=== PATIENT | female | born 1980 | race Caucasian/White ===

== ENCOUNTER 2020-09-28 22:02 | Emergency (ER) | payer OTHER ==
[2020-09-28] MEDS ORDERED: MAG HYDROX/AL HYDROX/SIMETH SUSP 30 ML UDCUP PO ONE (22:27)
[2020-09-28] MEDS ORDERED: LIDOCAINE 2% VISCOUS SOLN 15 ML UDCUP PO ONE (22:27)
--- NOTE | 2020-09-28 22:29 | ER Document Report ---
ED Medical Screen (RME) - General Chief Complaint: Chest Pain Stated Complaint: CHEST PAIN Time Seen by Provider: 09/28/20 22:20 - HPI Notes: 09/28/20 22:27 40-year-old female to the emergency department with complaints of anterior chest pain that radiates through to her back that began about an hour ago. She has also had sensation of shortness of breath and sweating with it. She has not had any nausea or vomiting. She states this started after dinner. She states that he had a double cheeseburger for dinner. She tried an antacid at home but that did not improve her pain. She states that the chest pain feels both like pressure on her chest and also like something is twisting her on the inside. She does not have a history of diabetes, hyperlipidemia, hypertension in herself. She does not currently smoke. She is not on any control. She is not had any leg swelling. She not recently been traveling or had surgery. On brief medical screening exam, patient looks uncomfortable. She is bracing herself on the wheelchair. She has relief of her pain when I palpate onto her chest. Her lungs are clear to auscultation. She is not diaphoretic. I performed a brief medical screening exam on the patient determined that the patient needs further evaluation and management by main side provider. I have placed initial orders to help expedite care. Physical Exam - Vital signs Vitals: Temp Pulse Resp BP Pulse Ox 98.5 F 91 20 115/73 100 09/28/20 22:14 09/28/20 22:14 09/28/20 22:14 09/28/20 22:14 09/28/20 22:14 Course - Vital Signs Vital signs: Temp Pulse Resp BP Pulse Ox 98.5 F 91 20 115/73 100 09/28/20 22:14 09/28/20 22:14 09/28/20 22:14 09/28/20 22:14 09/28/20 22:14
[2020-09-28 22:57] LABS: ABSOLUTE BASOPHILS # (AUTO) 0.1 10^3/uL (0.0-0.2); ABSOLUTE EOSINOPHILS # (AUTO) 0.5 10^3/uL (0.0-0.6); ABSOLUTE LYMPHOCYTES (AUTO) 2.9 10^3/uL (0.5-4.7); ABSOLUTE MONOCYTES (AUTO) 0.7 10^3/uL (0.1-1.4); ABSOLUTE NEUT (AUTO) 5.4 10^3/uL (1.7-8.2); EOSINOPHILS % (AUTO) 4.8 % (0-6); HEMATOCRIT 39.4 % (36.0-47.0); HEMOGLOBIN 13.4 g/dL (12.0-15.5); LYMPHOCYTES % (AUTO) 30.7 % (13-45); MEAN CORPUSCULAR HEMOGLOBIN 28.8 pg (27.0-33.4); MEAN CORPUSCULAR VOLUME 85 fl (80-97); MONOCYTES % (AUTO) 7.2 % (3-13); PLATELET COUNT 269 10^3/uL (150-450); RED BLOOD COUNT 4.66 10^6/uL (3.72-5.28); RED CELL DISTRIBUTION WIDTH 14.5 % (11.5-14.0); SEGMENTED NEUTROPHILS % (AUTO) 56.3 % (42-78); TOTAL CELLS COUNTED % (AUTO) 100 %; WHITE BLOOD COUNT 9.6 10^3/uL (4.0-10.5)
[2020-09-28 23:09] LABS: ANION GAP 7 (5-19); BLOOD UREA NITROGEN 12 mg/dL (7-20); CALCIUM 10.2 mg/dL (8.4-10.2); CARBON DIOXIDE 24 mmol/L (22-30); CHLORIDE 105 mmol/L (98-107); GLUCOSE 98 mg/dL (75-110); POTASSIUM 4.2 mmol/L (3.6-5.0)
--- NOTE | 2020-09-28 23:37 | RADIOLOGY REPORT (SQ) ---
CHEST X-RAY 2 view on 09/28/2020 at 10:54 PM CLINICAL INDICATION: Chest pain COMPARISON: None FINDINGS: The lungs are clear. Cardiac, hilar and mediastinal contours are within normal limits. Pulmonary vascularity is within normal limits. No bony abnormality is noted. IMPRESSION: No active disease.
[2020-09-28 23:55] LABS: ALBUMIN 4.5 g/dL (3.5-5.0); ALKALINE PHOSPHATASE 107 U/L (38-126); ASPARTATE AMINO TRANSFERASE 19 U/L (14-36); BILIRUBIN,DIRECT 0.2 mg/dL (0.0-0.4); BILIRUBIN,TOTAL 1.2 mg/dL (0.2-1.3); TOTAL PROTEIN 7.7 g/dL (6.3-8.2)
--- NOTE | 2020-09-29 00:08 | ER Document Report ---
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 Patient states the pain is sharp in the center of her chest and it feels like it is twisting inside of her chest. Patient states she stretched and took heartburn medicine but there was no relief. Patient states the chest pain is still present but less. Patient reports a negative covid test x1 week ago after exposure x3 weeks ago from her brother. Denies recent illness, fever, sore throat, leg pain/swelling, or shortness of breath with her chest pain. - Related Data Home Medications: sertraline Past Medical History - General Information source: Patient - Social History Smoking Status: Never Smoker Cigarette use (# per day): No Lives with: Family Family History: CAD, Hyperlipidemia, Hypertension Psychiatric Medical History: Reports: Hx Post Traumatic Stress Disorder Past Surgical History: Reports: Hx Hysterectomy - Partial Review of Systems - Review of Systems Constitutional: See HPI. denies: Fever, Recent illness EENT: See HPI. denies: Throat pain Cardiovascular: See HPI, Chest pain Respiratory: See HPI. denies: Short of breath Gastrointestinal: No symptoms reported Genitourinary: No symptoms reported Female Genitourinary: No symptoms reported Musculoskeletal: See HPI. denies: Leg swelling Skin: No symptoms reported Hematologic/Lymphatic: No symptoms reported Neurological/Psychological: No symptoms reported -: Yes All other systems reviewed and negative Physical Exam - Vital signs Vitals: Temp Pulse Resp BP Pulse Ox 98.5 F 91 20 115/73 100 09/28/20 22:14 09/28/20 22:14 09/28/20 22:14 09/28/20 22:14 09/28/20 22:14 - General General appearance: Appears well, Alert - HEENT Head: Normocephalic, Atraumatic Eyes: Normal Pupils: PERRL - Respiratory Respiratory status: No respiratory distress Chest status: Nontender Breath sounds: Normal Chest palpation: Normal - Cardiovascular Rhythm: Regular Heart sounds: Normal auscultation Murmur: No - Abdominal Inspection: Obese Distension: No distension Bowel sounds: Normal Tenderness: Nontender - Extremities General upper extremity: Normal inspection, Normal ROM General lower extremity: Normal inspection, Normal ROM. No: Edema - Neurological Neuro grossly intact: Yes Cognition: Normal Orientation: AAOx4 Jhony Coma Scale Eye Opening: Spontaneous [place] Coma Scale Verbal: Oriented Jhony Coma Scale Motor: Obeys Commands Jhony Coma Scale Total: 15 Speech: Normal Motor strength normal: LUE, RUE, LLE, RLE Sensory: Normal - Psychological Associated symptoms: Normal affect, Normal mood - Skin Skin Temperature: Warm Skin Moisture: Dry Skin Color: Normal Course - Re-evaluation Re-evalutation: 09/29/20 00:56 MDM 40 year old with atypical chest pain and pain is better here. Work up here is reassuring. Discussed follow up and likely etiology GI vs musculoskeletal. She expresssed understnading. - Vital Signs Vital signs: Temp Pulse Resp BP Pulse Ox 98.5 F 91 20 115/73 100 09/28/20 22:14 09/28/20 22:14 09/28/20 22:14 09/28/20 22:14 09/28/20 22:14 - Laboratory Result Diagrams: 09/28/20 22:42 09/28/20 22:42 Laboratory results interpreted by me: 09/28/20 09/28/20 22:42 22:42 RDW 14.5 H Sodium 135.9 L - Diagnostic Test Radiology reviewed: Image reviewed, Reports reviewed - EKG Interpretation by Me EKG shows normal: Sinus rhythm Rate: Normal Rhythm: NSR - NSR NL [employer] [address] elevation or depression my interpretation. Discharge - Discharge Clinical Impression: Atypical chest pain Condition: Stable Disposition: HOME, SELF-CARE Instructions: Chest Pain of Unclear Cause (OM), Family Physicians / Practices Additional Instructions: See your doctor or pick a family doctor for follow up. Rest. Take the medicine as directed. Please return here for chest pain, shortness of breath or other problems or concerns. I personally performed the services described in the documentation, reviewed and edited the documentation which was dictated to the scribe in my presence, and it accurately records my words and actions.
[2020-09-29 01:08] VITALS: BP 129/79
--- NOTE | 2020-09-29 17:43 | EKG REPORT ---
SEVERITY:- NORMAL ECG - SINUS RHYTHM : Confirmed by: Kevin Singer MD 29-Sep-2020 17:42:10
== END 2020-09-29 01:07 | disposition home or self-care (01) ==
LOC: ER 22:02
DX: R07.89 Other chest pain (principal); Z20.828 Contact with and (suspected) exposure to other viral communicable diseases
CPT/HCPCS: 93005; 99285; 36415; 85025; 80076; 80048; 84484; 85379; 71046; 93010; J3490